=== PATIENT | female | born 1985 | race African-American/Black ===

== ENCOUNTER 2016-08-19 09:28 | Emergency (ER) | payer SELFPAY ==
[~2016-08-19] VITALS: Ht 154.9 cm; Wt 85.3 kg
[2016-08-19 09:40] VITALS: BP 155/73
--- NOTE | 2016-08-19 09:48 | PHYS DOC ---
Past Medical History Past Medical History: No Pertinent History Past Surgical History: No Surgical History Alcohol Use: None Drug Use: None Adult General Chief Complaint Chief Complaint: ALLERGIC REACTION HPI HPI 31-year-old female presenting to the emergency department today with a rash around the lips. She reports eating shellfish but denies having history of shellfish allergy. This occurred approximately 2 days ago. She reports taking Benadryl which improved her symptoms mildly. She denies tongue swelling difficulty breathing stridor or shortness of breath. Onset 2 days Location lips Duration constant Mildly alleviated by Benadryl. Review of Systems Review of Systems ROS negative for chest pain shortness of breath fevers chills. All other review of systems is negative unless otherwise noted in history of present illness. Allergies Allergies Allergies Coded Allergies Type Severity Reaction Last Updated Verified No Known Drug Allergies 08/19/16 No Physical Exam Physical Exam Constitutional: Well developed, well nourished, no acute distress, non-toxic appearance. [] HENT: Normocephalic, atraumatic, bilateral external ears normal, oropharynx moist, no oral exudates, nose normal. The patient's lips have a mild maculopapular rash without any exudate present. No swelling of the tongue. Lips appear nonswollen objectively. Eyes: PERRLA, EOMI, conjunctiva normal, no discharge. Neck: Normal range of motion, no tenderness, supple, no stridor. [] Cardiovascular:Heart rate regular rhythm, no murmur Lungs & Thorax: Bilateral breath sounds clear to auscultation [] Abdomen: Bowel sounds normal, soft, no tenderness, no masses, no pulsatile masses. Skin: Warm, dry, no erythema, no rash. [] Back: No tenderness, no CVA tenderness. [] Extremities: No tenderness, no cyanosis, no clubbing, ROM intact, no edema. Neurologic: Alert and oriented X 3, normal motor function, normal sensory function, no focal deficits noted. Psychologic: Affect normal, judgement normal, mood normal. [] Current Patient Data Vital Signs Vital Signs Date Time Temp Pulse Resp B/P Pulse Ox O2 Delivery O2 Flow Rate FiO2 08/19/16 09:40 98.9 100 18 99 Room Air 98.9 EKG EKG [] Radiology/Procedures Radiology/Procedures [] Course & Med Decision Making Course & Med Decision Making Pertinent Labs and Imaging studies reviewed. (See chart for details) [] 31-year-old female presenting to the emergency department today with a rash around the lips after reported seafood exposure. Diagnosis included allergy versus fever blisters. I recommended taking Benadryl as needed for itchiness. She was going to try a topical cream OTC. I recommended her to follow up with her primary care physician over the next 4-5 days if her symptoms did not improve. Dragon Disclaimer Dragon Disclaimer This electronic medical record was generated, in whole or in part, using a voice recognition dictation system. Departure Departure Impression: Primary Impression: Rash on lips Disposition: HOME, SELF-CARE Condition: STABLE Referrals: NO PCP (PCP) MARTHA BRUSH MD Additional Instructions: Thank you for allowing us to participate in your care today. Followup with your primary care physician in 5-7 days if your symptoms do not improve. If you do not have a primary care provider you can ask for a list of our primary care providers. Return to the emergency department you have any new or concerning findings. This should be evaluated by the primary care physician and any necessary consulting services for continued management within a few days after discharge. Return to emergency room if you have any new or concerning symptoms including but not limited to fever, chills, nausea, vomiting, intractable pain, any new rashes, chest pain, shortness of air, uncontrolled bleeding, difficulty breathing, and/or vision loss. IZABEL FLOREZ MD Aug 19, 2016 09:48
== END 2016-08-19 10:00 | disposition home or self-care (01) ==
LOC: ER 09:28
DX: R21 Rash and other nonspecific skin eruption (principal); Z91.013 Allergy to seafood
CPT/HCPCS: 99281